=== PATIENT | female | born 1970 | race African-American/Black ===

== ENCOUNTER → 2020-10-30 | Outpatient (CLI) | payer BC ==
--- NOTE | 2020-11-15 08:58 | KCIC ---
Bilateral digital screening mammograms: Reason for examination: Routine screening. There are no previous studies available for comparison. Interpretation was made with the benefit of CAD. Findings: Breast density: Category B. There are scattered areas of fibroglandular density. There is a 1.2 cm oval circumscribed mass in the right inner lower quadrant, 3:00 to 3:30 position, a bout 9 cm from the nipple. No other discrete breast mass is seen. There are no suspicious calcificat ions or architectural distortions. Impression: There is a 1.2 cm oval circumscribed mass in the right breast in the 3:00 to 3:30 position. Without p rior studies, stability can not be determined.. Further evaluation with targeted right breast ultraso und is recommended. Assessment: BI-RADS Category 0. Incomplete. Additional imaging is recommended. Recommendation: Targeted right breast ultrasound. This patient's information has been entered into a reminder system for the patient to be notified wit h the results of her examination and a target date for the next mammogram. Electronically signed by: Alexandria Lee MD (11/15/2020 8:56 AM) [email or web address]
== END ==
LOC: KCIC MAMMO 09:49
PROVIDERS: ATTEND Family Medicine
DX: Z12.31 Encounter for screening mammogram for malignant neoplasm of breast (principal); N63.13 Unspecified lump in the right breast, lower outer quadrant
CPT/HCPCS: 77067

== ENCOUNTER → 2020-11-28 | Outpatient (CLI) | payer BC ==
--- NOTE | 2020-11-28 08:48 | KCIC ---
Right breast ultrasound: Reason for examination: Nodule on screening mammogram. Comparison is made to mammographic exam dated 10/30/2020. Ultrasound examination of the right breast and axilla was performed. At the 3:00 position 8 cm from the nipple, there is a 1.1 x 0.8 cm hypoechoic circumscribed lesion in parallel orientation with no abnormal vascularity seen. The appearance would be consistent with a sm all fibroadenoma. No suspicious lesions are seen. No abnormal appearing lymph nodes are seen in the a xilla. IMPRESSION: 1.1 cm circumscribed nodule probably representing a fibroadenoma at the 3:00 position 8 cm from the n ipple in the right breast. Recommend 6 month follow-up to evaluate stability. BI-RADS Category 3: Probably Benign. "Our facility is accredited by the [employer] Mammography Program." This patient's information has been entered into a reminder system for the patient to be notified wit h the results of her examination and a target date for the next mammogram. Electronically signed by: Eve Pantoja MD (11/28/2020 8:46 AM) [email or web address]
== END ==
LOC: KCIC US 08:03
PROVIDERS: ATTEND Family Medicine
DX: N63.14 Unspecified lump in the right breast, lower inner quadrant (principal)
CPT/HCPCS: 76641